=== PATIENT | male | born 1975 | race Caucasian/White ===

== ENCOUNTER 2021-08-24 00:49 | Day surgery (SDC) | payer BC, SELFPAY ==
[2021-08-13 09:31] VITALS: BMI 38.7
[2021-08-24 11:36] VITALS: BP 136/83; PULSE 82; RESP 18; TEMP 36.7; O2SAT 99; BMI 39.0
[2021-08-24] MEDS: LACTATED RINGERS 1,000 ML 150 ML IV CONT (11:49)
--- NOTE | 2021-08-24 12:03 | WPDGICN ---
Assessment and Plan Assessment and plan (1) Family history of colon cancer in mother: Code(s): Z80.0 - Family history of malignant neoplasm of digestive organs Status: Acute Assessment and Plan: Patient's mother had colon cancer. For this reason neoplasia screening is advised now on at 5 year intervals in the future. GI Consult Note Consult date/time: 08/24/21 12:03 HPI: Pranay Patiño Jr. is a 45 year old male Presents for screening colonoscopy. His current weight appetite and bowel movements are normal. Patient denies abdominal pain. He has had no bleeding. Family history is significant his mother had colon cancer. Patient is presents today for neoplasia screening. Review of Systems Review of Systems: All systems reviewed & are unremarkable except as noted in HPI and below PMFSH Past Medical History Medical History (Updated 08/24/21 @ 12:04 by Mesfin Orozco MD) Diabetes type 2, controlled Hypertension Hypertriglyceridemia Morbid (severe) obesity due to excess calories Surgical History Surgical History (Updated 08/21/21 @ 15:47 by Micha Jones DO) History of gastric bypass Family History Family History (Updated 07/09/21 @ 08:36 by Lam Paul MA) Mother Colon polyp Hypertension Grandparent Diabetes mellitus Social History Social History (Updated 07/09/21 @ 08:37 by Lam Paul MA) Smoking status: Never smoker Second hand tobacco smoke exposure: Yes Alcohol intake: never Alcohol use details: rare Substance use: never Substance use type: does not use Living arrangements: with family Gender identity (if verbalized by the patient): Male Sexual Orientation (if Verbalized by the Patient): Straight or Heterosexual Spiritual care concerns: No Agree to blood products: Yes Meds Home Medications and Allergies Home Medications Medication Instructions Recorded Confirmed Type lisinopril 20 mg tablet 20 mg PO DAILY 04/24/21 08/24/21 History sitagliptin 100 mg tablet 100 mg PO DAILY #90 tablet 06/22/21 08/24/21 Rx testosterone cypionate 200 mg/mL 300 mg IM .every 10 days #10 ml 07/20/21 08/24/21 Rx intramuscular oil metformin 500 mg tablet,extended 2,000 mg PO DAILY #360 tablet 08/06/21 08/24/21 Rx release 24 hr Allergies Allergy/AdvReac Type Severity Reaction Status Date / Time No Known Allergies Allergy Verified 08/24/21 11:35 Vital Signs Vital Signs - 24 hr 08/24/21 11:36 Temperature 98.1 F Pulse Rate 82 Respiratory Rate 18 Blood Pressure 136/83 Pulse Oximetry 99 Exam Narrative: Physical exam reveals patient be alert. Vital signs stable. HEENT exam is unremarkable. Patient is anicteric. Lungs are clear to auscultation and percussion. Heart is without murmur or extra sounds. Abdominal exam bowel sounds are present soft nontender with no organomegaly. Digital external rectal exam is normal.
--- NOTE | 2021-08-24 12:18 | WPDANESEPPF ---
Anes - Initial Pre Proc Eval Procedure: Operation Date: 08/24/21 13:00 Proposed Procedures p Screening Colonoscopy - Mesfin Orozco MD Date/Time: 08/24/21 12:18 Surgeon: Mesfin Orozco MD Pre Op Diagnosis: neoplasm screening, family hx colon ca Patient Data Age: 45 Gender: M Height: 1.88 m Weight: 138 kg Last Vital Signs Temp 98.1 F 08/24/21 11:36 Pulse 82 08/24/21 11:36 Resp 18 08/24/21 11:36 BP 136/83 08/24/21 11:36 Pulse Ox 99 08/24/21 11:36 Allergies Allergy/AdvReac Type Severity Reaction Status Date / Time No Known Allergies Allergy Verified 08/24/21 11:35 Home Medications Medication Instructions Recorded Confirmed Type lisinopril 20 mg tablet 20 mg PO DAILY 04/24/21 08/24/21 History sitagliptin 100 mg tablet 100 mg PO DAILY #90 tablet 06/22/21 08/24/21 Rx testosterone cypionate 200 mg/mL 300 mg IM .every 10 days #10 ml 07/20/21 08/24/21 Rx intramuscular oil metformin 500 mg tablet,extended 2,000 mg PO DAILY #360 tablet 08/06/21 08/24/21 Rx release 24 hr Patient hx anesthesia problems: none Family hx anesthesia problems: none Results Review: All pre-operative results and documents have been reviewed as part of the pre-operative evaluation. [facility] Past Medical History Medical History (Updated 08/24/21 @ 12:04 by Mesfin Orozco MD) Diabetes type 2, controlled Hypertension Hypertriglyceridemia Morbid (severe) obesity due to excess calories Surgical History Surgical History (Updated 08/21/21 @ 15:47 by Micha Jones DO) History of gastric bypass Family History Family History (Updated 07/09/21 @ 08:36 by Lam Paul MA) Mother Colon polyp Hypertension Grandparent Diabetes mellitus Social History Social History (Updated 07/09/21 @ 08:37 by Lam Paul MA) Smoking status: Never smoker Second hand tobacco smoke exposure: Yes Alcohol intake: never Alcohol use details: rare Substance use: never Substance use type: does not use Living arrangements: with family Gender identity (if verbalized by the patient): Male Sexual Orientation (if Verbalized by the Patient): Straight or Heterosexual Spiritual care concerns: No Agree to blood products: Yes Anes - Eval Final PreProcedure Day of Procedure 08/24/21 12:18 Patient weight: morbidly obese Heart: regular rate and rhythm Lungs: clear to auscultation Airway: Mallampati scale class II Neurological: alert and oriented Last oral intake: >/= 8 hours ASA classification: III Emergent: no Anesthetic plan: proceed Anesthesia type and monitoring: general GIVS and standard monitoring Results Review: All pre-operative results and documents have been reviewed as part of the pre-operative evaluation. Informed Consent: The patient's anesthetic plan and its attendant risks and benefits were discussed with the patient/family/POA. Questions were solicited and answers provided to the satisfaction of the patient/family/POA.
[2021-08-24 12:44] VITALS: BP 117/59; PULSE 80; RESP 18; O2SAT 97
[2021-08-24 12:54] VITALS: BP 127/47; PULSE 86; RESP 17; O2SAT 96
[2021-08-24 13:04] VITALS: BP 113/65; PULSE 78; RESP 21; O2SAT 98
[2021-08-25 06:22] LABS: Glucose Point of Care 183 mg/dl (65-105)
== END 2021-08-24 13:22 | disposition home or self-care (01) ==
PROVIDERS: PCP Family Medicine Adolescent Medicine; Visit Provider Internal Medicine Gastroenterology
PROC: 0DJD8ZZ Inspection of Lower Intestinal Tract, Via Natural or Artificial Opening Endoscopic (ICD-10-PCS; CPT 45378; principal; 2021-08-24 13:00)
DX: Z12.11 Encounter for screening for malignant neoplasm of colon (principal); D12.0 Benign neoplasm of cecum; K64.8 Other hemorrhoids; Z80.0 Family history of malignant neoplasm of digestive organs; I10 Essential (primary) hypertension; E11.9 Type 2 diabetes mellitus without complications; E78.1 Pure hyperglyceridemia; E66.01 Morbid (severe) obesity due to excess calories; Z68.39 Body mass index [BMI] 39.0-39.9, adult; Z98.84 Bariatric surgery status; Z79.84 Long term (current) use of oral hypoglycemic drugs
CPT/HCPCS: 45385; 82948; 88305; J2704; J7120

== ENCOUNTER → 2023-02-07 11:20 | Outpatient (CLI) | payer BC, SELFPAY ==
--- NOTE | ~2023-02-07 | CT_ITS ---
EXAMINATION: CT abdomen pelvis wo con DATE: 02/07/2023 11:42 INDICATION: Unspecified abdominal pain. TECHNIQUE: Computed tomography (CT) of the abdomen and pelvis was performed without intravenous contr ast. Automated exposure control and iterative reconstruction technique were employed. The dose-length product was 1325.82 mGy-cm. COMPARISON: None. FINDINGS: The visualized portions of the lung bases are clear without pneumonia or pleural effusion. The heart size is normal. No pericardial effusion. The liver and spleen are normal. There are gallsto elio in the gallbladder, which is normal in size. The pancreas, adrenal glands, and kidneys are normal . There is no urolithiasis. There are no dilated loops of bowel. The appendix is normal. There is mil d thoracic and lumbar spondylosis. IMPRESSION: 1. Cholelithiasis. No evidence of acute cholecystitis. Reviewed, dictated and finalized at location E.
== END ==
PROVIDERS: PCP Family Medicine Adolescent Medicine; Visit Provider Surgery
DX: K43.9 Ventral hernia without obstruction or gangrene (principal); K80.20 Calculus of gallbladder without cholecystitis without obstruction
CPT/HCPCS: 74176